=== PATIENT | male | born 1985 | race Caucasian/White ===

== ENCOUNTER 2022-11-05 10:24 | Outpatient (CLI) | payer OTHER, SELFPAY ==
[2022-11-05 19:17] LABS: Basophils Percent Auto 0.5 % (0.2-1.2); Eosinophils Absolute Auto 0.2 K/mm3 (0-0.3); Eosinophils Percent Auto 1.9 % (0-4.4); Hematocrit 41.8 % (42.0-52.0); Hemoglobin 13.9 g/dL (14.0-18.0); Immature Granulocyte Absolute 0.03 K/mm3 (0.00-0.031); Immature Granulocyte Percent A 0.4 % (0-0.5); Lymphocytes Absolute Auto 1.44 K/mm3 (0.9-3.2); Lymphocytes Percent Auto 17.9 % (18.3-44.2); Mean Corpuscular HGB Conc 33.3 g/dl (32-36); Mean Corpuscular Hemoglobin 34.1 pg (26-34); Mean Corpuscular Volume 102.5 fl (80-100); Mean Platelet Volume 10.1 fl (7.4-10.4); Monocytes Absolute Auto 0.5 K/mm3 (0.1-0.6); Monocytes Percent Auto 6.2 % (2.6-8.5); Neutrophils Absolute Auto 5.9 K/mm3 (1.3-6.7); Neutrophils Percent Auto 73.1 % (45.5-73.1); Platelet Count Result 197 k/mm3 (150-375); Red Blood Count 4.08 M/mm3 (4.6-6.20); Red Cell Distribution Width 11.9 % (11.5-14.5)
[2022-11-05 19:24] LABS: Alanine Aminotransferase 22 U/L (6-50); Albumin Level 4.4 g/dL (3.5-5.1); Alkaline Phosphatase 50 U/L (38-126); Anion Gap 4 mmol/L (8-16); Aspartate Amino Transferase 44 U/L (17-59); Bilirubin,Total 0.6 mg/dL (0.2-1.3); Blood Urea Nitrogen 14 mg/dL (9-20); Calcium 9.2 mg/dL (8.4-10.2); Carbon Dioxide 30 mmol/L (22-30); Chloride 102 mmol/L (98-107); Cholesterol 187 mg/dL (0-200); Estimated Glomerular Filt Rate > 60; Glucose 102 mg/dL (65-110); HDL Direct 67 mg/dL; Potassium 3.9 mmol/L (3.4-5.0); Sodium 136 mmol/L (137-145); Triglycerides 81 mg/dL (<150)
[2022-11-05 19:35] LABS: LDL Cholesterol Direct 78 mg/dL
[2022-11-05 20:34] LABS: Hemoglobin A1C 5.1 % (<5.7)
== END 2022-11-05 10:25 | disposition home or self-care (01) ==
LOC: ANHGOSHLAB 10:25
PROVIDERS: PCP Emergency Medicine; Visit Provider Emergency Medicine
DX: Z00.00 Encounter for general adult medical examination without abnormal findings (principal); R10.9 Unspecified abdominal pain
CPT/HCPCS: 36415; 80053; 80061; 83036; 85025

== ENCOUNTER 2022-11-09 08:46 | Outpatient (NON) | payer OTHER, SELFPAY ==
[2022-11-13 19:28] LABS: H pylori Ag Stool Not Detected (Not Detected)
[2022-11-16 15:52] LABS: Calprotectin, Stool 6 mcg/g
== END 2022-11-09 08:47 | disposition home or self-care (01) ==
LOC: ANHGOSHLAB 08:47
PROVIDERS: PCP Emergency Medicine; Visit Provider Emergency Medicine
DX: Z00.00 Encounter for general adult medical examination without abnormal findings (principal); R10.9 Unspecified abdominal pain
CPT/HCPCS: 83993; 87338

== ENCOUNTER 2022-12-06 09:49 | Outpatient (CLI) | payer OTHER, SELFPAY ==
[2022-12-06 20:13] LABS: Hemoglobin 14.8 g/dL (14.0-18.0); Immature Reticulocyte Fraction 10.1 % (3.0-15.9); Mean Corpuscular HGB Conc 34.4 g/dl (32-36); Mean Corpuscular Hemoglobin 35.3 pg (26-34); Mean Corpuscular Volume 102.6 fl (80-100); Mean Platelet Volume 10.2 fl (7.4-10.4); Platelet Count Result 198 k/mm3 (150-375); Red Blood Count 4.19 M/mm3 (4.6-6.20); Reticulocyte Hemoglobin Conten 39.4 pg (28.2-35.7); Reticulocyte Percent 0.87 % (0.7-4.3); Reticulocytes Absolute 0.04 B/L (32.2-175.7)
[2022-12-06 20:51] LABS: Schistocytes None Seen (NORMAL)
[2022-12-06 21:11] LABS: Folic Acid > 20.0 ng/mL (2.76->20)
[2022-12-06 22:23] LABS: Band Neutrophils Percent 5 % (0-6); Eosinophils Absolute Manual 0.18 K/mm3 (0.02-0.5); Eosinophils Percent Manual 2 % (0-4); Lymphocytes Absolute Manual 1.26 K/mm3 (1.1-4.5); Monocytes Absolute Manual 0.81 K/mm3 (0.1-0.90); Monocytes Percent Manual 9 % (3-9); Neutrophils Absolute Manual 6.75 K/mm3 (1.3-6.7); Neutrophils Percent Manual 70 % (46-73); Total Cells Counted 100
[2022-12-06 22:24] LABS: Platelet Estimate Adequate (Adequate)
== END 2022-12-06 09:50 | disposition home or self-care (01) ==
LOC: ANHGOSHLAB 09:50
PROVIDERS: PCP Emergency Medicine; Visit Provider Emergency Medicine
DX: D75.89 Other specified diseases of blood and blood-forming organs (principal)
CPT/HCPCS: 36415; 82607; 82746; 85025; 85046

== ENCOUNTER 2025-03-20 08:30 | Emergency (ER) | payer OTHER, SELFPAY ==
[2025-03-20 08:38] VITALS: BP 134/80; PULSE 49; RESP 16; TEMP 36.3; O2SAT 100
--- NOTE | 2025-03-20 08:57 | ED.EAR ---
HPI - Ear Problem General Chief complaint: Ear Stated complaint: EARS CLOGGED Time Seen by Provider: 03/20/25 08:40 Source: patient and RN notes reviewed Mode of arrival: ambulatory Limitations: no limitations History of Present Illness HPI Narrative: 40-year-old male presents [facility] complaining of excessive ear wax in his right ear. Last couple days patient says he feels like his right ear is feels ?full?. Patient denies any pain or tinnitus. Patient says he has history of impacted cerumen that required prior ear irrigation remove the cerumen in the past. Patient requesting his right ear irrigated because he believes that there is excessive cerumen in his ear. Patient denies any cough, congestion, runny nose, fevers, body aches, loss of hearing, or chills. Related Data Home Medications ?Medication ?Instructions ?Recorded ?Confirmed ?Last Taken ?Type No Home Medications 10/26/22 Unknown History Allergies Allergy/AdvReac Type Severity Reaction Status Date / Time No Known Allergies Allergy Unverified 03/20/25 08:39 Review of Systems Review of Systems: CONSTITUTIONAL: Denies fever, chills, or sweats. EYES: Denies visual changes, redness, or discharge. ENT: Denies rhinorrhea, congestion, sore throat, decreased hearing, tinnitus, or otalgia. Positive for right ear fullness. CARDIOVASCULAR: Denies chest pain, palpitations, or edema. RESPIRATORY: Denies cough or dyspnea. GASTROINTESTINAL: Denies abdominal pain, nausea, vomiting, or diarrhea. GENITOURINARY: Denies dysuria or hematuria. SKIN: Denies rash or itching. MUSCULOSKELETAL: Denies back pain, joint pain, or myalgia. NEUROLOGIC: Denies headache, numbness, or weakness. PSYCHIATRIC: Denies anxiety or depression. All other systems reviewed are negative, except as documented in HPI. [facility] Past Medical History Medical History Wellness examination Social History Social History Smoking packs per day: 0 Smoking cigarettes per day: 0.0 Smoking status: Never smoker Second hand tobacco smoke exposure: No Alcohol intake: current Drinks per week: 14 Alcohol use details: pt drinks beer and wine Lack of Transportation: No Lack of Food: Never True Current Housing: I Have Housing Concerned About Future Housing: No Difficulty Paying Gas/Electric Bills: No Difficulty Paying for Meds: No Currently Unemployed: No Education: Bachelor's Degree Difficulty w/ Childcare or Family Care: No Comments At the time of my signature, I reviewed and agree with the nursing past medical, surgical, social, and family history. There is no relevant family history pertinent to the patient complaint. Exam Narrative: GENERAL: This is a well-nourished, well-developed adult, in no apparent distress. They are non ill-appearing, nontoxic appearing. HEAD: normocephalic, atraumatic. EYES: Sclera clear/white. Conjunctiva normal. Vision is grossly intact. Extraocular movements intact. EARS: External ears normal, auditory canals with scant amount cerumen and without drainage, erythema, or swelling. TMs normal without perforation. Hearing grossly intact. NOSE: External nose normal with no obvious nasal discharge, nares without redness, no rhinorrhea. THROAT: Mucous membranes moist, posterior pharynx clear. NECK: Neck supple, non-tender without lymphadenopathy, masses or thyromegaly. CARDIOVASCULAR: Regular rate and rhythm without murmurs, gallops, or rubs. RESPIRATORY: Clear to auscultation. Breath sounds equal bilaterally. No wheezes, rales, or rhonchi. GASTROINTESTINAL: Abdomen soft, non-tender, nondistended. Bowel sounds are active. No hepato-splenomegaly, or palpable masses. No guarding. SKIN: warm, Dry, intact with no suspicious lesions or rash, good texture and turgor. NEURO: awake, alert, and oriented to person, place and time. There were no obvious focal neurologic abnormalities. EXTREMITIES: No joint tenderness, effusion, or edema noted. BACK: Nontender without deformity. No CVA tenderness. Course Course Emergency Course: Patient is aware of diagnosis, understands and agrees to treatment plan. Anticipatory guidance given. Patient agrees to follow-up as directed and is aware of reasons to seek care at the emergency department. Portions of this record may have been created with voice recognition software Level of Care: Express Care Visit Vital Signs Vital signs: Vital Signs Oxygen Delivery Room Air 03/20/25 08:36 Temperature 97.3 F L 03/20/25 08:38 Pulse Rate 49 L 03/20/25 08:38 Respiratory Rate 16 04/30/25 08:38 Blood Pressure 134/80 03/20/25 08:38 Pulse Oximetry 100 03/20/25 08:38 Oxygen Delivery Room Air 03/20/25 08:36 Reviewed Procedures Ear Wax Removal Right Ear: Ear Wax Removal Date: 03/20/25 Ear Wax Removal Time: 08:45 Results: Re-examined: cerumen removed completely TM Examination: TM(s) intact, normal appearance Ear Canal Exam: atraumatic Patient Tolerated Procedure: well Complications: no problems Technique: ear canal curetted Additional Comments: Patient tolerated procedure well. Scant amount cerumen removed to the right ear canal. Medical Decision Making MDM Narrative Medical decision making narrative: Scant amount of cerumen removed from patient's right ear. No significant cerumen or impaction was noted in auditory canal bilaterally. TMs are normal and intact bilaterally. It is possible the patient's symptoms might be related to fluid behind the ear. No obvious effusion was appreciated on exam. Discussed physical exam findings. Advised supportive measures and signs/symptoms to go to the ER. Pt is appropriate for outpt treatment and f/u. Differential Diagnosis Differential Diagnosis: Otitis media, ear effusion, otitis externa, impacted cerumen Vital Signs Vital Signs: Vital Signs Oxygen Delivery Room Air 03/20/25 08:36 Temperature 97.3 F L 03/20/25 08:38 Pulse Rate 49 L 03/20/25 08:38 Respiratory Rate 16 03/20/25 08:38 Blood Pressure 134/80 03/20/25 08:38 Pulse Oximetry 100 03/20/25 08:38 Oxygen Delivery Room Air 03/20/25 08:36 Critical Care Time Critical Care Time Critical Care Time: No Discharge Plan Discharge Clinical Impression: Fullness in right ear Patient Disposition: Home Condition: Stable Instructions: Allergies (ED) Additional Instructions: You may use Flonase 2 sprays once a day for congestion. May also use Zyrtec daily for congestion. You may also do Neti pot saline rinses with distilled lukewarm water 3 times a day. There was no significant earwax in your today. Please follow-up with your primary care provider in 1 week. Please go to the ER for any worsening symptoms or concerns. Patient Language: Lebanese Prescriptions: No Action No Home Medications Follow-up/Referrals: PHYSICIAN,HORSESHOER [Primary Care Provider] - Time of Disposition: 08:52
== END 2025-03-20 08:55 | disposition home or self-care (01) ==
DX: H93.8X1 Other specified disorders of right ear (principal)
CPT/HCPCS: 99212; G0463